=== PATIENT | female | born 1955 | race Caucasian/White ===

== ENCOUNTER → 2021-02-05 11:06 | Outpatient (POV) | payer MEDICARE, MEDICAID, SELFPAY ==
[2021-02-05 11:42] VITALS: BP 170/71; PULSE 73; RESP 18; O2SAT 99; BMI 34.9
--- NOTE | 2021-02-05 13:17 | [facility].PMCON ---
Assessment and Plan (1) Degenerative joint disease (DJD) of lumbar spine Status: Chronic Category: Medical Code(s): M47.816 - Spondylosis without myelopathy or radiculopathy, lumbar region (2) Lumbar radiculopathy Status: Chronic Category: Medical Code(s): M54.16 - Radiculopathy, lumbar region - Assessment and plan all Dx Assessment and Plan for all problems:: Patient is a 65-year-old white female who presents today for discussion of possible oral medication management. She is having pain in her low back area with radiation into bilateral lower extremities. Patient I had a long discussion concerning options in our clinic. I have discussed possible spinal cord stimulation versus intrathecal therapy as long-term options for pain relief for the patient. Patient is not interested in injective therapy or interventional therapies at this time. She does report to be better managed with oral medications. She would like to follow-up with an alternative clinic that can offer her oral medications at this time. Patient was discharged from Dr. Liu's office for not attending a random urine drug screen. She has been advised if she does have a change of mind in the future regarding interventional therapies will be happy to treat her. Patient has been instructed to contact the clinic with any concerns before the next appointment. Dr. Isaac has reviewed this note and agrees with this plan of care. This note was dictated using voice recognition software and make contain errors or omissions. HPI - Data of Consult Patient: new to practice Consult date: 02/05/21 Requesting Physician: Radha Self APRN Primary Care Provider: Referral Provider, MD - Consult Narrative Reason for consult: Low back pain with radiation into bilateral lower extremities History of present illness: Ms. Swanson is a 65 year old female who presents today for consultation for chronic low back pain and bilateral lower extremity pain. Patient says she has had pain in her low back, hips and bilateral lower extremities for many years. She was referred to us by Justine Kothari. The patient says that she has had chronic pain in her right leg with numbness and tingling. She has occasional left leg pain with numbness and tingling, however, the pain is not as severe as she has in the left side. Patient says she has had injective therapy in the past with no significant relief. She says she has had physical therapy that she reports to have completed approximately 1 to 2 months ago. She says she was unable to walk following physical therapy. She is not interested in injective therapy at this time. She has been seen in Dr. Liu's office in the past. Patient was discharged from Dr. Liu's office due to a random urine drug screen for which the patient did not show up. Patient is interested in oral medication management. She does take oxycodone 10 mg 1 tablet p.o. every 6 hours as needed pain. She does rate her pain a 5 out of 10 today. CC: Radha Self APRN [facility] History I have reviewed the patient's past medical history: Yes *Have you ever received a pneumonia vaccine?: Yes *Have you received a flu vaccine this season?: No - *Social History Smoking Status: Former smoker Alcohol Intake: never *Occupational Status:: retired *Travel in the last 8 weeks: None Family Hx:: Non-contributory Review of Systems - Review of Systems Review of Systems General: No recent weight changes, no fever, no sleep disturbances Respiratory: No cough, no shortness of air, no recurring pulmonary infections Cardiovascular/peripheral vascular: No chest pain, no palpitations, no edema, no shortness of breath Gastrointestinal: No new onset incontinence, normal bowel movements reported Genitourinary: No new onset incontinence Musculoskeletal: Chronic low back pain with radiation into right leg with numbness and tingling, intermittent left leg pain with numbness an
== END ==
PROVIDERS: Visit Provider Clinical Nurse Specialist Family Health
DX: M47.896 Other spondylosis, lumbar region (principal); M54.16 Radiculopathy, lumbar region
CPT/HCPCS: 99202; G0463